=== PATIENT | female | born 1965 | race Caucasian/White ===

== ENCOUNTER 2017-12-18 23:53 | Observation (INO) | payer MEDICAID, OTHER ==
[2017-12-19 00:16] LABS: PLATELET COUNT 361 10^3/uL (150-400)
[2017-12-19] MEDS ORDERED: NS 1,000 ML IV ONE (00:22)
--- NOTE | 2017-12-19 00:25 | EDPHY ---
H & P Stated Complaint: RLQ abd pain, N/V Time Seen by Provider: 12/19/17 00:01 HPI/ROS: HPI The patient presents with progressive right lower quadrant abdominal pain which began yesterday. The pain is achy, constant, worse with movement and when she applies pressure to the area. It is associated with nausea, vomiting, anorexia , subjective fever. She over the last 2-3 weeks has had right-sided lower back pain which she attributes to muscle pain. She has not had any vaginal bleeding. She has no prior history of similar symptoms. REVIEW OF SYSTEMS Constitutional: No fever, no chills. Eyes: No discharge. ENT: No sore throat. Cardiovascular: No chest pain, no palpitations. Respiratory: No cough, no shortness of breath. Gastrointestinal: See HPI Genitourinary: No hematuria. Musculoskeletal: No back pain. Skin: No rashes. Neurological: No headache. PMHx: History of hypokalemia, otherwise healthy Soc Hx: Recent travel to [place], prior tobacco use PHYSICAL General Appearance: Alert, no distress Eyes: Pupils equal and round no pallor or injection ENT, Mouth: Mucous membranes moist Respiratory: There are no retractions, lungs are clear to auscultation Cardiovascular: Regular rate and rhythm Gastrointestinal: Abdomen is soft and tender in the right lower quadrant without rebound or guarding Neurological: A&O, moves all extremities Skin: Warm and dry, no rashes Musculoskeletal: Neck is supple non tender Extremities: symmetrical, full range of motion Psychiatric: Patient is oriented X 3, there is no agitation Source: Patient Exam Limitations: No limitations - Personal History LMP (Females 10-55): Post Menopausal Current Tetanus/Diphtheria Vaccine: Yes Tetanus Vaccine Date: 2014 - Medical/Surgical History Hx Asthma: No Hx Chronic Respiratory Disease: No Hx Diabetes: No Hx Cardiac Disease: No Hx Renal Disease: No Hx Cirrhosis: No Hx Alcoholism: No Hx HIV/AIDS: No Hx Splenectomy or Spleen Trauma: No Other PMH: pmh- hypokalemia - Social History Smoking Status: Former smoker Constitutional: Initial Vital Signs Temperature (C) 37.7 C 12/18/17 23:55 Heart Rate 84 12/18/17 23:55 Respiratory Rate 16 12/18/17 23:55 Blood Pressure 105/59 L 12/18/17 23:55 O2 Sat (%) 96 12/18/17 23:55 O2 Delivery Mode Room Air Allergies/Adverse Reactions: Penicillins Allergy (Severe, Verified 11/05/09 10:46) bee venom protein (honey bee) Allergy (Verified 12/18/17 23:58) Home Medications: Medication Instructions Recorded Potassium 06/21/14 Medical Decision Making - Diagnostics Imaging Results: CT abdomen pelvis with IV contrast demonstrates mild edema surrounding the appendix, questionable colitis, dilated small bowel in the right lower quadrant , discussed with Dr. Mujica of Radiology. 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 On exam, tender in the right lower quadrant. Differential diagnosis includes appendicitis, diverticulitis, mesenteric adenitis. In the emergency department, IV line was established and the patient was given normal saline. She declined any pain medication. Labs were checked and did reveal leukocytosis with left shift, hypokalemia, alkalosis. Her electrolytes imbalances were similar to previous values. I have given her supplemental potassium IV. CT scan demonstrated unlikely appendicitis with other nonspecific findings. Because of her tenderness in the right lower quadrant, I consulted with the on- call general surgeon Dr. Broussard who will admit the patient for observation. There is still some suspicion for early appendicitis I believe. She could also have a urinary tract infection as her UA has returned and does show signs of such. I have given her a dose of ceftriaxone and I have checked blood cultures. The patient did report that she did at [facility] about 3 days ago and has returned from [place] 4 days ago. - Data Points Laboratory Results: Laboratory Results 12/19/17 00:10 12/19/17 00:10 12/19/17 12/19/17 12/19/17 00:50 00:10 00:10 WBC RBC Hgb Hct MCV MCH MCHC RDW Plt Count MPV Neut % (Auto) Lymph % (Auto) Dougherty % (Auto) Eos % (Auto) Baso % (Auto) Nucleat RBC Rel Count Absolute Neuts (auto) Absolute Lymphs (auto) Absolute Monos (auto) Absolute Eos (auto) Absolute Basos (auto) Absolute Nucleated RBC Immature Gran % Immature Gran # RBC/WBC/PLT Morphology Platelet Estimate Sodium 137 mEq/L mEq/L (135-145) Potassium 2.6 mEq/L L* mEq/L (3.3-5.0) Chloride 76 mEq/L L mEq/L (97-110) Carbon Dioxide 41 mEq/l H* mEq/l (22-31) Anion Gap 20 mEq/L H mEq/L (8-16) BUN 22 mg/dL mg/dL (7-23) Creatinine 1.0 mg/dL mg/dL (0.6-1.0) Estimated GFR 58 Glucose 122 mg/dL H mg/dL (70-100) Calcium 9.6 mg/dL mg/dL (8.5-10.4) Total Bilirubin 0.8 mg/dL mg/dL (0.1-1.4) Conjugated Bilirubin 0.1 mg/dL mg/dL (0.0-0.5) Unconjugated Bilirubin 0.7 mg/dL mg/dL (0.0-1.1) AST 42 IU/L IU/L (14-46) ALT 22 IU/L IU/L (9-52) Alkaline Phosphatase 104 IU/L IU/L (38-126) Total Protein 9.1 g/dL H g/dL (6.3-8.2) Albumin 4.7 g/dL g/dL (3.5-5.0) Lipase 60 IU/L IU/L (23-300) Urine Color YELLOW Urine Appearance HAZY Urine pH 8.0 H (5.0-7.5) Ur Specific [place] > 1.035 H (1.002-1.030) Urine Protein 2+ H (NEGATIVE) Urine Ketones TRACE H (NEGATIVE) Urine Blood NEGATIVE (NEGATIVE) Urine Nitrate NEGATIVE (NEGATIVE) Urine Bilirubin NEGATIVE (NEGATIVE) Urine Urobilinogen 2.0 EU H EU (0.2-1.0) Ur Leukocyte Esterase 3+ H (NEGATIVE) Urine RBC NONE SEEN /hpf /hpf (0-3) Urine WBC 50-182 /hpf H /hpf (0-3) Ur Epithelial Cells 1+ /lpf /lpf (NONE-1+) Urine Bacteria TRACE /hpf H /hpf (NONE SEEN) Urine Mucus TRACE /lpf /lpf (NONE-1+) Urine Glucose NEGATIVE (NEGATIVE) 12/19/17 00:10 WBC 23.09 10^3/uL H 10^3/uL (3.80-9.50) RBC 4.45 10^6/uL 10^6/uL (4.18-5.33) Hgb 15.3 g/dL g/dL (12.6-16.3) Hct 41.1 % % (38.0-47.0) MCV 92.4 fL fL (81.5-99.8) MCH 34.4 pg H pg (27.9-34.1) MCHC 37.2 g/dL H g/dL (32.4-36.7) RDW 14.0 % % (11.5-15.2) Plt Count 361 10^3/uL 10^3/uL (150-400) MPV 9.9 fL fL (8.7-11.7) Neut % (Auto) 91.3 % H % (39.3-74.2) Lymph % (Auto) 4.7 % L % (15.0-45.0) Dougherty % (Auto) 2.6 % L % (4.5-13.0) Eos % (Auto) 0.0 % L % (0.6-7.6) Baso % (Auto) 0.3 % % (0.3-1.7) Nucleat RBC Rel Count 0.0 % % (0.0-0.2) Absolute Neuts (auto) 21.08 10^3/uL H 10^3/uL (1.70-6.50) Absolute Lymphs (auto) 1.09 10^3/uL 10^3/uL (1.00-3.00) Absolute Monos (auto) 0.60 10^3/uL 10^3/uL (0.30-0.80) Absolute Eos (auto) 0.00 10^3/uL L 10^3/uL (0.03-0.40) Absolute Basos (auto) 0.07 10^3/uL 10^3/uL (0.02-0.10) Absolute Nucleated RBC 0.00 10^3/uL 10^3/uL (0-0.01) Immature Gran % 1.1 % % (0.0-1.1) Immature Gran # 0.25 10^3/uL H 10^3/uL (0.00-0.10) RBC/WBC/PLT Morphology TNP Platelet Estimate TNP Sodium Potassium Chloride Carbon Dioxide Anion Gap BUN Creatinine Estimated GFR Glucose Calcium Total Bilirubin Conjugated Bilirubin Unconjugated Bilirubin AST ALT Alkaline Phosphatase Total Protein Albumin Lipase Urine Color Urine Appearance Urine pH Ur Specific [place] Urine Protein Urine Ketones Urine Blood Urine Nitrate Urine Bilirubin Urine Urobilinogen Ur Leukocyte Esterase Urine RBC Urine WBC Ur Epithelial Cells Urine Bacteria Urine Mucus Urine Glucose Medications Given: Discontinued Medications Sodium Chloride (Ns) 1,000 mls @ 0 mls/hr IV EDNOW ONE; Wide Open PRN Reason: Protocol Stop: 12/19/17 00:23 Last Admin: 12/19/17 00:27 Dose: 1,000 mls Potassium Chloride (Potassium Cl 10 Meq (Premix)) 100 mls @ 100 mls/hr IV ONCE ONE Stop: 12/19/17 01:49 Last Admin: 12/19/17 01:44 Dose: 100 mls Ceftriaxone Sodium/Dextrose (Rocephin 1 Gm (Premix)) 50 mls @ 100 mls/hr IV EDNOW ONE PRN Reason: Protocol Stop: 12/19/17 01:56 Last Admin: 12/19/17 01:44 Dose: 50 mls Departure - Departure Disposition: [facility] Inpatient Acute Clinical Impression: Hypokalemia Abdominal pain Qualifiers: Abdominal location: right lower quadrant Qualified Code(s): R10.31 - Right lower quadrant pain Urinary tract infection Qualifiers: Urinary tract infection type: site unspecified Hematuria presence: without hematuria Qualified Code(s): N39.0 - Urinary tract infection, site not specified Leukocytosis Qualifiers: Leukocytosis type: unspecified Qualified Code(s): D72.829 - Elevated white blood cell count, unspecified Condition: Fair
[2017-12-19] MEDS ORDERED: IOPAMIDOL (ISOVUE-300) 100 ML BTL ONE (00:36)
[2017-12-19] MEDS ORDERED: POTASSIUM Cl (KCl) 100 ML IV ONE (00:50)
[2017-12-19] MEDS ORDERED: POTASSIUM CL 20 MEQ TAB PO ONE (03:00)
[2017-12-19] MEDS ORDERED: ONDANSETRON 4 MG/2 ML VIAL IVP PRN ×2 (03:00→20:22)
--- NOTE | 2017-12-19 03:00 | SOAPPROG ---
SOAP Progress Note Assessment/Plan: Assessment: 52 FEMALE WITH RLQ PAIN AND MILD TENDERNESS WITH NAUSEA AND EMESIS WBC 23K CT POSSIBLE EARLY APPE BUT RADS DINT CALL IT ABD SOFT, SOME REBOUND RLQ, NO GUARDING CHEST CLEAR, COR RR, HEENT WNL, EXTREM OK RISKS AND OPTIONS FULLY DISCUSSED Plan:ADMIT FOR OBS 12/19/17 02:56 Objective: Vital Signs Temp Pulse Resp BP Pulse Ox 37.2 C 65 16 95/59 L 93 12/19/17 02:18 12/19/17 02:18 12/19/17 02:18 12/19/17 02:18 12/19/17 02:18 12/17/17 12/18/17 12/19/17 05:59 05:59 05:59 Intake Total 1100 Balance 1100 ICD10 Worksheet Patient Problems: Problems Problem Status Onset Abdominal pain Acute Hypokalemia Acute Leukocytosis Acute Urinary tract infection Acute
[2017-12-19 04:23] LABS: PLATELET COUNT 304 10^3/uL (150-400)
[2017-12-19] MEDS ORDERED: PROTOCOL POTASSIUM 1 DOSE MISC PRN (07:28)
[2017-12-19] MEDS ORDERED: POTASSIUM CL 10 MEQ TAB PO ONE (08:28)
[2017-12-19] MEDS: POTASSIUM Cl (KCl) 100 ML IV SCH ×5 (08:52→22:29)
--- NOTE | 2017-12-19 09:33 | ASMTCMCOM ---
CM Note CM Note Notes: 12/19/2017 Case Management Note Reviewed chart. Pt admitted for evaluation of RLQ abdominal pain. There are no PT or OT evals ordered at this time. There are no case management d/c needs identified d/t pt age, employment status, and independence in ADL's prior to admission. Case Management d/c poc: independent with follow up as directed. Case Management available if needs change. Date Signed: 12/19/2017 09:31 AM Electronically Signed By:Anne-Marie Johnson RN
[2017-12-19] MEDS ORDERED: HYDROmorphONE/DILAUDID 1 MG/ML INJ IVP PRN ×2 (12:52→20:22)
--- NOTE | 2017-12-19 12:57 | SOAPPROG ---
SOAP Progress Note Assessment/Plan: Assessment/Plan: 52 Y F admitted with abdominal pain, suspect appendicitis, although CT equivocal. AXR ok. To OR today for lap appy/exploration. Risks and options discussed. Seen early this am and again later this am by Dr. Broussard. Also, K+ protocol for hypokalemia. 12/19/17 12:56 Objective: Vital Signs Temp Pulse Resp BP Pulse Ox 37.4 C 88 18 100/65 95 12/19/17 12:37 12/19/17 12:37 12/19/17 12:37 12/19/17 12:37 12/19/17 12:37 Laboratory Results 12/19/17 04:01 12/19/17 05:50 12/18/17 12/19/17 12/20/17 05:59 05:59 05:59 Intake Total 1200 Balance 1200 ICD10 Worksheet Patient Problems: Problems Problem Status Onset Abdominal pain Acute Hypokalemia Acute Leukocytosis Acute Urinary tract infection Acute
[2017-12-19] MEDS ORDERED: BUPIVACAINE 0.5% 30 ML SDV ONE (13:18)
[2017-12-19] MEDS ORDERED: LR 1,000 ML IV ONE (15:46)
--- NOTE | 2017-12-19 18:45 | PDANEPAE ---
ANE History of Present Illness acute appendicitis ANE Past Medical History - Cardiovascular History Hx Hypertension: No Hx Arrhythmias: No Hx Chest Pain: No Hx Coronary Artery / Peripheral Vascular Disease: No Hx CHF / Valvular Disease: No Hx Palpitations: No - Pulmonary History Hx COPD: No Hx Asthma/Reactive Airway Disease: No Hx Recent Upper Respiratory Infection: No Hx Oxygen in Use at Home: No Hx Sleep Apnea: No Sleep Apnea Screening Result - Last Documented: Negative - Endocrine History Hx Diabetes: No Hypothyroid: No Hyperthyroid: No Obesity: no - Renal History Hx Renal Disorders: No - Liver History Hx Hepatic Disorders: No - Chronic Pain History Chronic Pain: No ANE Review of Systems Review of systems is: negative Review of Systems: - Exercise capacity Exercise capacity: >=4 METS ANE Patient History - Allergies Allergies/Adverse Reactions: Penicillins Allergy (Severe, Verified 12/19/17 07:42) Unknown bee venom protein (honey bee) Allergy (Verified 12/18/17 23:58) - Home Medications Home Medications: Potassium Bicarbonate/Cit AC [Klor-Con-Ef 25 Meq Tab Eff] 75 meq PO DAILY [Last Taken 12/17/17] Acetaminophen [Tylenol 325mg (*)] 325 mg PO DAILY PRN 12/19/17 [Last Taken Unknown] Herbals/Supplements -Info Only 1 ea PO DAILY 12/19/17 [Last Taken Unknown] - NPO status NPO Status: no food or drink >8 hours NPO Since - Liquids (Date): 12/18/17 NPO Since - Liquids (Time): 00:00 NPO Since - Solids (Date): 12/18/17 NPO Since - Solids (Time): 00:00 - Anes Hx Anes Hx: no prior problems - Smoking Hx Smoking Status: Former smoker - Alcohol Use Alcohol Use: Occasionally (/wk) - Family Anes Hx Family Anes Hx: none ANE Labs/Vital Signs - Labs Result Diagrams: 12/19/17 04:01 12/19/17 17:55 - Vital Signs Vital Signs: reviewed preoperatively; see RN documention for details Blood Pressure: 100/65 Heart Rate: 88 Respiratory Rate: 18 O2 Sat (%): 95 Height: 160.02 cm Weight: 47.627 kg ANE Physical Exam - Airway Neck exam: FROM Mallampati Score: Class 2 Mouth exam: poor dentition - Pulmonary Pulmonary: no respiratory distress - Cardiovascular Cardiovascular: regular rate and rhythym - ASA Status ASA Status: II, E ANE Anesthesia Plan Anesthesia Plan: general endotracheal anesthesia
[2017-12-19] MEDS ORDERED: MIDAZOLAM 2 MG/2 ML VIAL IVP ONE (18:46)
[2017-12-19] MEDS ORDERED: HEPARIN 1000 UNIT/1 ML MDV ONE (18:59)
[2017-12-19] MEDS ORDERED: ceFAZolin 1 GM VIAL ONE (18:59)
[2017-12-19] MEDS ORDERED: ROCURONIUM 50 MG/5 ML VIAL ONE (19:11)
[2017-12-19] MEDS ORDERED: fentaNYL 100 MCG/2 ML INJ ONE ×2 (19:11→20:01)
[2017-12-19] MEDS ORDERED: LIDOCAINE 2% 2 ML INJ ONE (19:11)
[2017-12-19] MEDS ORDERED: PROPOFOL 200 MG/20 ML VIAL ONE (19:12)
[2017-12-19] MEDS ORDERED: KETOROLAC 30 MG/1 ML SDV ONE (19:40)
[2017-12-19] MEDS ORDERED: DEXAMETHASONE 4 MG/ML VIAL ONE (19:40)
[2017-12-19] MEDS ORDERED: SUGAMMADEX SODIUM 200 MG/2 ML VIAL IVP ONE (19:41)
[2017-12-19] MEDS ORDERED: ONDANSETRON 4 MG/2 ML VIAL ONE (19:41)
[2017-12-19] MEDS ORDERED: fentaNYL 100 MCG/2 ML INJ IVP PRN (20:22)
[2017-12-19] MEDS ORDERED: PROMETHAZINE HCL 25 MG/ML INJ IVP PRN (20:22)
[2017-12-19] MEDS ORDERED: NALOXONE HCL 0.4 MG/ML INJ IVP PRN (20:22)
--- NOTE | 2017-12-19 20:23 | POSTANESTH ---
Post Anesthetic Evaluation Cardiovascular Status: Normal, Stable Respiratory Status: Normal, Stable Level of Consciousness/Mental Status: Can Participate in Eval Pain Control: Adequate, Prn Tx Ordered Nausea/Vomiting Control: Adequate, Prn Tx Ordered Complications Possibly Related to Anesthesia: None Noted
--- NOTE | 2017-12-19 21:34 | POSTOPPROG ---
Post Op Note Date of Operation: 12/19/17 Surgeon: Du Broussard Anesthesiologist: BHRAAT Anesthesia: GET(General Endotracheal) Pre-op Diagnosis: PERITONITIS POSSIBLE APPENDICITIS Post-op Diagnosis: SAME WITH PELVIC INFLAMMATORY DISEASE Indication: PERSISTENT PAIN AND LEUKOCYTOSIS Procedure: LAPAROSCOPIC APPENDECTOMY AND PERITONEAL LAVAGE Findings: RETROCECAL APPENDIX WITH MINIMAL INFLAMMATION/SMALL RIGHT TUBAL OVARIAN ABS Inf/Abcess present in the surg proc area at time of surgery?: Yes Depth: Organ Space EBL: Minimal Complications: NONE Drains: Jak Toledo Specimen(s): APPENDIX AND PELVIC FLUID CULTURE
[2017-12-19] MEDS ORDERED: OXYCODONE/APAP 5/325 TAB PO PRN (21:35)
[2017-12-19] MEDS: D5W 1/2 NS W/ 20 KCl/L 1,000 ML IV SCH (22:13)
[2017-12-20] MEDS: POTASSIUM Cl (KCl) 100 ML IV SCH ×2 (00:08→01:43)
[2017-12-20 08:21] LABS: PLATELET COUNT 302 10^3/uL (150-400)
[2017-12-20] MEDS: D5W 1/2 NS W/ 20 KCl/L 1,000 ML IV SCH (08:24)
[2017-12-20] MEDS ORDERED: POTASSIUM CL 10 MEQ TAB PO ONE ×2 (09:01→19:44)
[2017-12-20] MEDS: ACETAMINOPHEN 325 MG TAB PO PRN ×2 (09:58→18:25)
--- NOTE | 2017-12-20 11:11 | SOAPPROG ---
SOAP Progress Note Assessment/Plan: Assessment/Plan: 52 Y F admitted with abdominal pain, suspect appendicitis, although CT equivocal. AXR ok. Advance diet. Minimal pain. D/w'ed ID. They will consult. S: eager to go home. passing gas but feels bloated. O: alert, nad ctab rrr abd softly distended, +BS 12/20/17 11:07 Objective: Vital Signs Temp Pulse Resp BP Pulse Ox 36.7 C 49 L 16 89/66 L 98 12/20/17 08:00 12/20/17 08:00 12/20/17 08:00 12/20/17 08:00 12/20/17 08:00 Microbiology 12/19/17 20:01 Gram Stain - Final Pelvis - Eswab 12/19/17 20:01 Gram Stain - Final Pelvis - Aspirate Laboratory Results 12/20/17 08:03 12/20/17 08:03 12/19/17 12/20/17 12/21/17 05:59 05:59 05:59 Intake Total 1200 1945 Output Total 305 Balance 1200 1640 ICD10 Worksheet Patient Problems: Problems Problem Status Onset Abdominal pain Acute Hypokalemia Acute Leukocytosis Acute Urinary tract infection Acute
[2017-12-20] MEDS ORDERED: AMPICILLIN/SULBACTAM 3 GM in NS 100 ML IV SCH (16:30)
[2017-12-20] MEDS: DOXYCYCLINE HYCLATE 100 MG CAP/TAB PO SCH ×2 (17:00→20:29)
--- NOTE | 2017-12-20 17:07 | GCON ---
[f rep st] CONSULTATION INFECTIOUS DISEASE CONSULTATION DATE OF CONSULTATION: 12/20/2017 REFERRING PHYSICIAN: Du Broussard MD REASON FOR CONSULT: This is a 52-year-old healthy woman, whose problems date back to about the last 2 weeks, when she developed right lower back pain. This pain was stable and she attributed to musculoskeletal. Over the last 2 days, she developed right lower quadrant abdominal pain, and Tuesday and Tuesday, developed nausea and vomiting. On 12/19/2017, she presented to the emergency room for further evaluation. Labs revealed a markedly elevated white count of 23,000, and a CT scan that showed mildly dilated loops of small bowel in the right lower quadrant. No free air. No radiologic findings consistent with pyelonephritis. The patient was assessed by Surgery and clinically, patient had a high concern for appendicitis and was taken to the operating room later that night. The patient underwent a laparoscopic procedure and a retrocecal appendix was identified with minimal inflammation and a small right tubo- ovarian abscess. Appendix and pelvic fluid cultures were sent for culture. Postoperative diagnosis was pelvic inflammatory disease. ID was consulted for further antibiotic management of this process. On further questioning, the patient did have chills and sweats for 1 day, the day of presentation, but no appetite changes. No vaginal symptoms. No changes in her ability to tolerate exercise. The patient is single. Had sex 2 weeks ago. Utilized condoms. Prior to that, no sex for 8 months. She has never had an STD in the past, but does not seek regular medical care, with her last pelvic exam being at age 29. PAST MEDICAL HISTORY AND SURGICAL HISTORY: The patient had an at age 29. SOCIAL HISTORY: She travel to [place] for 3 weeks. She returned 2 weeks ago. 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 Her last travel internationally was in [address] [facility]. 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 She no longer smokes. She rarely drinks alcohol. No drugs. Other social history as per HPI. ALLERGIES: Penicillin with unknown reaction that occurred when she was a baby. MEDICATIONS: The patient received perioperative Ancef, but does not take any other scheduled med medicines. REVIEW OF SYSTEMS: A complete 10-point review of systems was performed and is negative except as mentioned in the HPI. PHYSICAL EXAM: VITAL SIGNS: T-max 37.7. T-current 36.7. Blood pressure BP 90s over 60s. Initial heart rate was in the 80s, but now is back down to her baseline in the 50s and 40s. Respiratory rate is normal at 16, saturation 95% on room air. GENERAL: This is a very athletic-appearing, trim woman, lying flat in bed, in no acute distress. HEENT: No conjunctival abnormalities. Oropharynx: Good dentition. Moist mucous membranes. NECK: Supple. CARDIOVASCULAR: Bradycardic. Regular rate. ABDOMEN: Distended, per her baseline, as she reports visible abdominal muscles at baseline. She has a few surgical scars with glue in place. No surrounding erythema. She had slightly decreased bowel sounds. No peritoneal signs. EXTREMITIES: No clubbing, cyanosis, or edema. SKIN: No rashes. NEUROLOGICAL: She was alert and oriented x4. Moving all 4 extremities equally. LABORATORY: White count 22,000, hematocrit 32, platelets of 302, 93% neutrophils. Creatinine is 0.9. LFTs within normal limits. The patient was hypokalemic also at presentation at 2.5. Blood cultures were obtained on admission on 12/19, and no growth to date, and 2 swabs and aspirate from the OR showed PMNs but no organisms on the Gram stain. CT: As per HPI. ASSESSMENT AND PLAN: This is a 52-year-old woman who presents with a small tubo -ovarian abscess/pelvic inflammatory disease, likely causing her right lower quadrant pain, appendix likely secondary. Discussed potential pathogenesis of pelvic inflammatory disease, including ascending genitourinary infection and STDs also in the differential. Consider pathogens, E coli, Bacteroides, as well as other GI pathogens. Mycoplasma genitalium also in the differential diagnosis, but at this point would hold off treating due to concern over fluoroquinolones and tendon toxicity in this highly athletic woman. 1. We will screen for all STDs, gonorrhea, chlamydia, syphilis, HIV. This was discussed with patient extensively. 2. Start empiric therapy based on the typical maxwell with Unasyn. Discussed patient's penicillin allergy. The patient endorses a rechallenge with penicillin as the reaction is unknown and the majority of these reactions resolve in adulthood. 3. Would start doxycycline until chlamydia is ruled out. Patient already rec' d 2 doses ceftriaxone which would cover Gonorrhea. Thank you for this consultation. Hopeful for discharge tomorrow on Augmentin and doxycycline and follow up in my clinic. /[id number]/MODL MTDD
[2017-12-20 17:45] LABS: HIV TYPE 1 AND 2 NEGATIVE (NEGATIVE)
[2017-12-20] MEDS: AMPICILLIN/SULBACTAM 3 GM in NS 100 ML IV SCH ×2 (17:51→23:07)
[2017-12-21 04:48] LABS: PLATELET COUNT 304 10^3/uL (150-400)
[2017-12-21] MEDS: AMPICILLIN/SULBACTAM 3 GM in NS 100 ML IV SCH ×2 (04:49→11:22)
[2017-12-21] MEDS: D5W 1/2 NS W/ 20 KCl/L 1,000 ML IV SCH (05:25)
[2017-12-21] MEDS: DOXYCYCLINE HYCLATE 100 MG CAP/TAB PO SCH (08:06)
[2017-12-21] MEDS: ACETAMINOPHEN 325 MG TAB PO PRN (08:07)
--- NOTE | 2017-12-21 10:02 | SOAPPROG ---
SOAP Progress Note Assessment/Plan: Assessment/Plan: 52 Y F admitted with abdominal pain, s/p laparoscopic appendectomy, washout, +tuboovarian abscess. POD#2. Doing well from surgery. Appreciate ID input. HIV neg and syphilis nonreactive. Chlamydia and gonorrhea pending. Cultures NGTD. Hopefully home today after cleared by ID. Possibly on PO augmentin and doxycycline per ID notes. S: No complaints. Walking hallway. Smiling. Drinking coffee. O: alert, nad ctab rrr abd softer, inc cdi 12/21/17 10:02 Objective: Vital Signs Temp Pulse Resp BP Pulse Ox 36.9 C 63 16 102/56 L 93 12/21/17 07:39 12/21/17 07:39 12/21/17 07:39 12/21/17 07:39 12/21/17 07:39 Microbiology 12/19/17 20:01 Gram Stain - Final Pelvis - Aspirate 12/19/17 20:01 Gram Stain - Final Pelvis - Eswab Laboratory Results 12/21/17 03:26 12/21/17 03:26 12/20/17 12/21/17 12/22/17 05:59 05:59 05:59 Intake Total 1945 1796 1350 Output Total 305 300 Balance 1640 1496 1350 ICD10 Worksheet Patient Problems: Problems Problem Status Onset Abdominal pain Acute Hypokalemia Acute Leukocytosis Acute Urinary tract infection Acute
--- NOTE | 2017-12-21 10:30 | PCMIDPN ---
Assessment/Plan: # PID/Tubo-ovarian abscess R: presumed typical vaginal maxwell on doxycycline and Unasyn. The WBC much improved on current regimen and postoperatively --dc on 12 days Augmentin 875 mg PO BID + doxy 100mg PO BID --follow up with ID on Tuesday next week, appointment in discharge tab # Infiltrative R pelvic bone lesion on CT: bone biopsy today before dc --IR requested stat PTPTT --DC after bone biopsy # removed penicillin allergy from list as tolerating Unasyn Microbiology 12/19/17 20:01 Pelvis - Aspirate : Cultures pending 12/19/17 01:40 Blood culture (2) no growth to date 12/21/17 11:21 Subjective: Eating breakfast. Without problem, minimal pain remains, back pain has resolved. Objective: Vital Signs Temp Pulse Resp BP Pulse Ox 36.9 C 63 16 102/56 L 93 12/21/17 07:39 12/21/17 07:39 12/21/17 07:39 12/21/17 07:39 12/21/17 07:39 Microbiology 12/19/17 20:01 Gram Stain - Final Pelvis - Aspirate 12/19/17 20:01 Gram Stain - Final Pelvis - Eswab Laboratory Results 12/21/17 03:26 12/21/17 03:26 12/20/17 12/21/17 12/22/17 05:59 05:59 05:59 Intake Total 1945 1796 1350 Output Total 305 300 Balance 1640 1496 1350 - Physical Exam General Appearance: alert, no apparent distress Respiratory: No accessory muscle use Abdomen: non-tender, soft, distended (Mild), other (Multiple small incisions without abnormality) Skin: No diaphoresis, No jaundice, No pallor, No rash Neuro/Psych: alert, normal mood/affect, oriented x 3 - Time Spent With Patient Time Spent with Patient: greater than 35 minutes (Reviewed current laboratory results and new radiologic findings, showing infiltrative process right pelvis and need for biopsy. Also reviewed potential differential diagnosis. Care was coordinated with surgical team) Time Spent with Patient: Greater than 35 minutes spent on this patients care, greater than 50% of time spent counseling, educating, and coordinating care regarding the above mentioned plan. ICD10 Worksheet Patient Problems: Problems Problem Status Onset Abdominal pain Acute Hypokalemia Acute Leukocytosis Acute Urinary tract infection Acute
[2017-12-21 11:04] LABS: INR 0.99 (0.83-1.16); PROTIME(PATIENT) 13.3 SEC (12.0-15.0)
[2017-12-21 11:37] VITALS: BP 98/61
--- NOTE | 2017-12-21 14:16 | GDS ---
[f rep st] DISCHARGE SUMMARY DISCHARGE DIAGNOSIS: 1. Peritonitis with pelvic inflammatory disease and small right tubo-ovarian abscess. 2. Lytic sacral lesion. PROCEDURES: 1. Laparoscopic appendectomy with peritoneal lavage with Dr. Du Broussard. 2. Bone needle biopsy. CONSULTATIONS: Dr. Soraya Simmons. SPECIAL TESTS: Please see CT scan. HOSPITAL COURSE: The patient is a 52-year-old female who was admitted to the emergency department wi th the complaints of right lower quadrant abdominal pain. She had a CT scan that was equivocal for a ppendicitis. She was observed for some time, and her pain did not resolve, so she was brought to the operating room to undergo exploration by Dr. Broussard. She was found to have peritonitis and a right s mall tubo-ovarian abscess with signs of pelvic inflammatory disease. Her appendix was mildly inflame d, so this was removed. The procedure was uncomplicated, and she tolerated it well. Infectious Disease was consulted. Cultures were no growth to date upon discharge. They also ordered tests for HIV, syphilis, and chlamydia, which were all negative. She had a test for gonorrhea that was still pending at the time of discharge. Upon further review of her CT scan, she was found to hav e an infiltrative soft tissue mass involving the right side of the sacrum with some loss of cortex of the bone. This was needle biopsied with results pending upon discharge. DISCHARGE INSTRUCTIONS: The patient was discharged to home in stable condition with plans for outpat ient followup with both Dr. Broussard in Surgery, as well as Dr. Simmons in Infectious Disease. Prescript ions were provided for 12 days of Augmentin and doxycycline. Limitations were discussed. /[id number]/MODL
--- NOTE | 2017-12-21 16:36 | ASDISCHSUM ---
Discharge Information Plan Status:Home with No Needs Medically Cleared to Leave:12/21/2017 Discharge Date:12/21/2017 02:16 PM CM D/C Disposition:Home, Routine, Self-Care ADT D/C Disposition:Home, Routine, Self-Care Projected Discharge Date:12/21/2017 02:16 PM Transportation at D/C: Discharge Delay Reason: Follow-Up Date:12/21/2017 02:16 PM Discharge Slot: Final Diagnosis: Placement Information Patient Contact Information Contact Name:OG Relationship:Friend Address: Home Phone: City: [facility] Phone: [facility] Code: Email: Financial Information Financial Class:[email or web address] Primary Plan Desc:BABATUNDE MORALES Primary Plan Number:[id number] Secondary Plan Desc: Secondary Plan Number: Assessment Information LACE LACE Length of stay for Answers: 2 days current admission Acuity / Level of Answers: No Care: Did the patient have an inpatient admission? Comorbidities - select Answers: Other Notes: Hypokalemia all that apply # of Emergency department Answers: 1-2 visits in the last 6 months Score: 4 Date Signed: 12/21/2017 04:34 PM Electronically Signed By:Anne-Marie Johnson RN [facility] CM Progress Note CM Note CM Note Notes: 12/19/2017 Case Management Note Reviewed chart. Pt admitted for evaluation of RLQ abdominal pain. There are no PT or OT evals ordered at this time. There are no case management d/c needs identified d/t pt age, employment status, and independence in ADL's prior to admission. Case Management d/c poc: independent with follow up as directed. Case Management available if needs change. Date Signed: 12/19/2017 09:31 AM Electronically Signed By:Anne-Marie Johnson RN Case Management Discharge Plan Note Case Management Discharge Discharge Order Complete? Answers: Yes Patient to Obtain Answers: Independently Medications Discharge Comments Notes: 12/21/2017 Case Management Note Pt discharged with independelty with follow up as directed. Date Signed: 12/21/2017 04:35 PM Electronically Signed By:Anne-Marie Johnson RN Intervention Information
[2017-12-22 11:18] LABS: GC AMPLIFICATION GENPROBE POSITIVE (NEGATIVE)
--- NOTE | 2018-01-05 15:16 | GCON ---
[f rep st] CONSULTATION DATE OF CONSULTATION: 12/19/2017 The patient is a 52-year-old female who presents with right lower quadrant pain in the abdomen. It h as been progressive over the last 48 hours, and the pain is exacerbated by movement or coughing or sn eezing. She has had some nausea and anorexia and a little bit of vomiting. Denies any true genitour inary symptoms, although she has some low back pain for the last 2 weeks. PAST HISTORY: Includes no other major hospitalizations or surgeries. SOCIAL HISTORY: Reveals she is an ex-smoker. She does travel extensively, and has just returned fro [facility]. REVIEW OF SYSTEMS: Noncontributory on a full 10-point review except as related to the HPI. MEDICATIONS: None. ALLERGIES: Penicillin and bee venom protein. PHYSICAL EXAMINATION: GENERAL: An alert 52-year-old female in no acute distress, afebrile. HEAD an d NECK: Reveals no icterus or adenopathy or oral lesions. NECK: Supple nontender. CHEST: Clear. COR: Regular rhythm. ABDOMEN: Soft. She is slightly distended. Decreased bowel sounds. Tender in the right lower quadrant with some rebound, but no major guarding. There are no hernias. EXTREMI TIES: Benign with full pulses. NEUROLOGIC: Physiologic. PSYCH: Reveals her to be alert, oriented , and cooperative. IMPRESSION: Possible appendicitis. PLAN: Laparoscopic appendectomy. She will actually be admitted first for observation to see if her pain resolves, although I think she will likely need appendectomy. Her CT scan is not totally reveal ing for appendicitis, nor was her ultrasound. Risks and options have been fully discussed, and she w ished to proceed with hospital admission. /[id number]/MODL
--- NOTE | 2018-01-05 15:21 | GOP ---
[f rep st] OPERATIVE REPORT DATE OF OPERATION: 12/19/2017 SURGEON: Du Broussard MD SENIOR INFORMATION SECURITY ENGINEER: None. ANESTHESIOLOGIST: Dr. Díaz. PREOPERATIVE DIAGNOSIS: Acute appendicitis. POSTOPERATIVE DIAGNOSIS: Acute appendicitis plus tubo-ovarian abscess. PROCEDURE PERFORMED: Laparoscopic appendectomy and peritoneal lavage. FINDINGS: The patient was found to have a retrocecal appendix with minimal inflammation. There was a small right tubo-ovarian abscess and diffuse pelvic peritonitis. DESCRIPTION OF PROCEDURE: The patient was taken to the operating room where she received satisfactor y general endotracheal anesthesia by Dr. Díaz. She was placed in supine position, prepped and dr aped in usual sterile fashion. A periumbilical incision was made. A Veress needle inserted. Pneumo peritoneum was established. Trocar was introduced, laparoscope introduced, good visualization was ob tained. Two other trocars placed in the lower abdomen under direct vision. There was a fair amount of cloudy fluid in the pelvis and irritation of the small bowel loops. The cecum was rotated mediall y and the retrocecal appendix was identified. It was dissected free. The mesoappendix was divided w ith the Harmonic Scalpel until the base was skeletonized. It was then divided with Endo-ZOLTAN stapler and placed in a specimen bag and extracted through the upper midline port site. The appendix was onl y minimally inflamed, however, and did not appear to be the cause of the peritonitis. The pelvis was examined. The wound was irrigated and suctioned clear and there appeared to be a small right tubo-o varian abscess. This was mapped out of the duct and the fluid was sent for culture and suctioned deniz ar and the wound was copiously irrigated. I did not feel that this was significant enough to warrant resection of the tube or hysterectomy. Trocars removed under direct vision. Trocar sites were close d with 0 Vicryl for the fascia, 4-0 Monocryl subcuticular stitch for the skin. All layers infiltrate d with 0.5% Marcaine. She tolerated procedure well, was taken to the recovery room in good condition . There were no complications. /[id number]/MODL
== END 2017-12-21 14:16 | disposition home or self-care (01) ==
LOC: F2W 12-19 02:11
PROVIDERS: ADMIT Surgery; ATTEND Surgery
PROC: 0DTJ4ZZ Resection of Appendix, Percutaneous Endoscopic Approach (ICD-10-PCS; principal; 2017-12-19 18:30)
PROC: 3E1M38Z Irrigation of Peritoneal Cavity using Irrigating Substance, Percutaneous Approach (ICD-10-PCS; principal; 2017-12-19 18:30)
PROC: 0QB13ZX Excision of Sacrum, Percutaneous Approach, Diagnostic (ICD-10-PCS; 2017-12-21)
DX: A54.24 Gonococcal female pelvic inflammatory disease (principal); K35.80 Unspecified acute appendicitis; E87.6 Hypokalemia; D18.03 Hemangioma of intra-abdominal structures; Z87.891 Personal history of nicotine dependence
CPT/HCPCS: 88184-90; 88185-91; 96365; G0378; J0295; J0690; J0696; J1100; J1885; J2250; J2405; J2704; J3010; J3480; Q9967